=== PATIENT | male | born 1965 | race Caucasian/White ===

== ENCOUNTER 2016-10-17 12:00 | Observation (INO) | payer BC ==
[2016-10-10 15:18] VITALS: BP 121/71
[~2016-10-17] VITALS: Ht 177.8 cm; Wt 82.7 kg
[~2016-10-17 12:00] MED LIST: BACITRACIN 50,000 UNIT ONE; BUPIVACAINE/PF-EPI 0.5% 1:200K ONE; GABA300C10 PO; HYDR-3144 PO; PANT40TA3 PO; THROMBIN 5,000 UNIT VIAL TP ONE
[2016-10-17] MEDS ORDERED: LACTATED RINGERS 1,000 ML IV SCH (12:32)
[2016-10-17] MEDS ORDERED: TRAM50TA2 PO (12:37)
[2016-10-17] MEDS ORDERED: PRAS1TAB3 PO (12:37)
[2016-10-17] MEDS ORDERED: MULT-6 PO (12:37)
[2016-10-17] MEDS ORDERED: LIDOCAINE 1%, 2ML SQ PRN (13:00)
[2016-10-17] MEDS ORDERED: KETAMINE 10 MG/ML, 20ML ONE (16:17)
[2016-10-17] MEDS ORDERED: FENTANYL PF 250 MCG/5ML ONE (16:17)
[2016-10-17] MEDS ORDERED: ROCURONIUM 10 MG/ML ONE (16:20)
[2016-10-17] MEDS ORDERED: METOCLOPRAMIDE 5 MG/ML, 2ML ONE (16:20)
[2016-10-17] MEDS ORDERED: SUCCINYLCHOLINE 20 MG/ML, 10ML ONE (16:20)
[2016-10-17] MEDS ORDERED: ONDANSETRON 2MG/ML, 2ML ONE (16:20)
[2016-10-17] MEDS ORDERED: PROPOFOL 10 MG/ML, 20ML ONE (16:20)
[2016-10-17] MEDS ORDERED: PROPOFOL 10 MG/ML, 50ML ONE (16:20)
[2016-10-17] MEDS ORDERED: DEXAMETHASONE 4 MG/ML, 1ML ONE (16:20)
[2016-10-17] MEDS ORDERED: CEFAZOLIN 1,000 MG ONE (16:20)
[2016-10-17] MEDS ORDERED: BUPIVACAINE/PF-EPI 0.5% 1:200K ONE (16:59)
[2016-10-17] MEDS ORDERED: OXYcodone 5 MG/5 ML ORAL.SOL UDC PO PRN (17:30)
[2016-10-17] MEDS ORDERED: hydrALAzine 20 MG/ML, 1ML IV PRN (17:30)
[2016-10-17] MEDS ORDERED: FENTANYL PF 100 MCG/2ML IV PRN (17:30)
[2016-10-17] MEDS ORDERED: ONDANSETRON 2MG/ML, 2ML IVPush PRN ×2 (17:30→18:30)
[2016-10-17] MEDS ORDERED: MEPERIDINE/PF 25MG/0.5ML IVPush PRN (17:30)
[2016-10-17] MEDS ORDERED: MIDAZOLAM 1 MG/ML, 2ML IV PRN (17:30)
[2016-10-17] MEDS ORDERED: PROMETHAZINE 25 MG/ML, 1ML IV PRN (17:30)
[2016-10-17] MEDS ORDERED: LABETALOL 5MG/ML, 20ML IV PRN (17:30)
[2016-10-17] MEDS ORDERED: PHARMACY MAY ADJ FOR RENAL FX MC PRN (18:30)
[2016-10-17] MEDS ORDERED: HYDROmorphone PCA 30 MG/30 ML IV PRN (18:30)
[2016-10-17] MEDS ORDERED: MAGNESIUM HYDROXIDE 8%, 30ML UDC PO PRN (18:30)
[2016-10-17] MEDS ORDERED: PROMETHAZINE 25 MG/ML, 1ML IM PRN (18:30)
[2016-10-17] MEDS ORDERED: morphine SULFATE 10 MG/ML, 1ML IVPush PRN (18:30)
[2016-10-17] MEDS ORDERED: BISACODYL 10 MG SUPP PR PRN (18:30)
[2016-10-17] MEDS ORDERED: HYDROmorphone 2 MG/ML, 1ML ONE (18:37)
[2016-10-17] MEDS ORDERED: OXYcodone 5 MG/5 ML ORAL.SOL UDC ONE (18:37)
[2016-10-17] MEDS: HYDROmorphone 1 MG/ML, 1ML IV PRN ×2 (18:45→19:07)
[2016-10-17] MEDS ORDERED: HYDROmorphone PCA 30 MG/30 ML ONE (19:09)
[2016-10-17] MEDS: CYCLOBENZAPRINE 10 MG TABLET PO PRN (22:41)
[2016-10-17] MEDS: GABAPENTIN 300 MG CAPSULE PO SCH (22:41)
[2016-10-17] MEDS: SODIUM CHLORIDE FLUSH 10ML SYR IVF SCH (22:41)
[2016-10-17] MEDS: CEFAZOLIN PMX 1GM/50ML 50 ML IVPB SCH (22:54)
[2016-10-17] MEDS: NS + 20MEQ KCL 1,000 ML IV SCH (22:55)
[2016-10-18 00:35] VITALS: BP 134/84
[2016-10-18 03:17] VITALS: BP 148/88
[2016-10-18] MEDS: CYCLOBENZAPRINE 10 MG TABLET PO PRN (06:22)
[2016-10-18] MEDS: GABAPENTIN 300 MG CAPSULE PO SCH ×2 (06:22→12:08)
[2016-10-18] MEDS: HYDROcodone/APAP 10/325 MG TABLET PO PRN ×2 (06:23→10:49)
[2016-10-18] MEDS: CEFAZOLIN PMX 1GM/50ML 50 ML IVPB SCH (06:23)
[2016-10-18 07:35] VITALS: BP 112/70
[2016-10-18] MEDS: NS + 20MEQ KCL 1,000 ML IV SCH (08:13)
[2016-10-18] MEDS: SODIUM CHLORIDE FLUSH 10ML SYR IVF SCH (09:00)
[2016-10-18] MEDS ORDERED: SENNA/DOCUSATE TABLET PO SCH (09:00)
[2016-10-18] MEDS ORDERED: PANTOPROZOLE 40MG TABLET PO SCH (09:00)
[2016-10-18] MEDS ORDERED: CYCL-259 PO (13:15)
[2016-10-18] MEDS ORDERED: POLY119P4 PO (13:18)
== END 2016-10-18 13:30 | disposition home or self-care (01) ==
LOC: OUT 12:00 → ORIP 18:25 → 4NOR 20:00 → DCLOUNGE 10-18 12:50
PROVIDERS: ADMIT Neurological Surgery; ATTEND Neurological Surgery
DX: M48.02 Spinal stenosis, cervical region (principal); M50.223 Other cervical disc displacement at C6-C7 level; M54.12 Radiculopathy, cervical region
CPT/HCPCS: 63045; 72040; 96365; 96375; G0378; J0330; J0690; J1100; J1170; J2405; J2704; J2765; J3010; J3480; J3490; J7120

== ENCOUNTER → 2018-08-30 | Outpatient (CLI) | payer BC ==
[~2018-08-30] MED LIST changes: -BACITRACIN 50,000 UNIT ONE; -BUPIVACAINE/PF-EPI 0.5% 1:200K ONE; +CYCL-259 PO; -HYDR-3144 PO; +HYDR-3245 PO; +MULT-6 PO; +POLY119P4 PO; +PRAS1TAB3 PO; -THROMBIN 5,000 UNIT VIAL TP ONE; +TRAM50TA2 PO
[2018-08-30 13:30] LABS: BASOPHILS # (AUTO) 0.02 x10^3/uL (0-0.1); BASOPHILS % (AUTO) 1 % (0-1); EOSINOPHILS # (AUTO) 0.05 x10^3/uL (0-0.4); EOSINOPHILS % (AUTO) 1 % (1-7); LYMPHOCYTES # (AUTO) 1.65 x10^3/uL (1-3.4); LYMPHOCYTES % (AUTO) 31 % (22-44); MD NO; MEAN CORPUSCULAR HEMOGLOBIN 31.5 pg (27.5-34.5); MEAN CORPUSCULAR HGB CONC 33.8 g/dL (33.2-36.2); MEAN CORPUSCULAR VOLUME 93.2 fL (81-97); MEAN PLATELET VOLUME 7.9 fL (7.4-10.4); MONOCYTES % (AUTO) 6 % (2-9); NEUTROPHILS # (AUTO) 3.38 x10^3/uL (1.8-6.8); NEUTROPHILS % (AUTO) 63 % (42-75); PLATELET COUNT 279 x10^3/uL (130-400); RED BLOOD COUNT 4.96 x10^6/uL (4.38-5.82); RED CELL DISTRIBUTION WIDTH 13.6 % (9.4-14.8)
[2018-08-30 13:30] LABS: MICROSCOPIC NOT IND
[2018-08-30 13:31] LABS: CULTURE INDICATED? NO
[2018-08-30 13:38] LABS: ANION GAP 4 mmol/L (5-15); CALCIUM 9.5 mg/dL (8.5-10.1); CHLORIDE 106 mmol/L (98-107); CREATININE 1.09 mg/dL (0.7-1.3)
[2018-08-30 13:40] LABS: INTERNATIONAL NORMALIZED RATIO 0.98 (0.93-1.1); PROTHROMBIN TIME 10.4 Seconds (9.6-11.5)
== END | disposition home or self-care (01) ==
LOC: STAR 12:41
PROVIDERS: ATTEND Neurological Surgery
DX: Z01.818 Encounter for other preprocedural examination (principal); M51.36 Other intervertebral disc degeneration, lumbar region; M41.85 Other forms of scoliosis, thoracolumbar region; M48.061 Spinal stenosis, lumbar region without neurogenic claudication
CPT/HCPCS: 36415; 71046; 72110; 80048; 81003; 85025; 85610; 85730; 93005

== ENCOUNTER 2018-09-17 09:38 | Observation (INO) | payer BC ==
[~2018-09-17] VITALS: Ht 175.3 cm; Wt 78.4 kg
[~2018-09-17 09:38] MED LIST changes: +BACITRACIN 50,000 UNIT ONE; +BUPIVACAINE/PF-EPI 0.5% 1:200K ONE; +THROMBIN 5,000 UNIT VIAL TP ONE
[2018-09-17] MEDS ORDERED: MIDAZOLAM 1 MG/ML, 2ML ONE (10:00)
[2018-09-17] MEDS ORDERED: FENTANYL PF 250 MCG/5ML ONE (10:01)
[2018-09-17 10:04] VITALS: BP 135/86
[2018-09-17] MEDS ORDERED: LACTATED RINGERS 1,000 ML IV SCH (10:09)
[2018-09-17] MEDS ORDERED: ACETAMINOPHEN 500 MG TABLET ONE (10:14)
[2018-09-17] MEDS ORDERED: GABAPENTIN 300 MG CAPSULE ONE (10:15)
[2018-09-17] MEDS ORDERED: EPINEPHRINE 1 MG/ML, 1ML ONE (10:26)
[2018-09-17] MEDS ORDERED: BUPIVACAINE/PF 0.25% ONE (10:26)
[2018-09-17] MEDS ORDERED: ACETAMINOPHEN 500 MG TABLET PO ONE (10:30)
[2018-09-17] MEDS ORDERED: GABAPENTIN 300 MG CAPSULE PO ONE (10:30)
[2018-09-17] MEDS ORDERED: METHYLENE BLUE 10 MG/ML 10ML ONE (10:48)
[2018-09-17] MEDS ORDERED: SUCCINYLCHOLINE 20 MG/ML, 10ML ONE (10:58)
[2018-09-17] MEDS ORDERED: PROPOFOL 10 MG/ML, 20ML ONE (10:58)
[2018-09-17] MEDS ORDERED: CEFAZOLIN 1,000 MG ONE (10:58)
[2018-09-17] MEDS ORDERED: DEXAMETHASONE 4 MG/ML, 1ML ONE (10:58)
[2018-09-17] MEDS ORDERED: ONDANSETRON 2MG/ML, 2ML ONE (10:58)
[2018-09-17] MEDS ORDERED: methylPREDNISolone SOD SUCC 125 MG/2 ML ONE (11:54)
[2018-09-17] MEDS ORDERED: FENTANYL PF 100 MCG/2ML ONE ×2 (11:55→12:36)
[2018-09-17] MEDS ORDERED: ALBUTEROL SULFATE 2.5 MG/3 ML NPPB PRN (12:30)
[2018-09-17] MEDS ORDERED: HALOPERIDOL 5 MG/ML IV PRN (12:30)
[2018-09-17] MEDS ORDERED: LABETALOL 5MG/ML, 20ML IV PRN (12:30)
[2018-09-17] MEDS ORDERED: PROMETHAZINE 25 MG/ML, 1ML IV PRN (12:30)
[2018-09-17] MEDS ORDERED: hydrALAzine 20 MG/ML, 1ML IV PRN (12:30)
[2018-09-17] MEDS ORDERED: OXYcodone 5 MG/5 ML ORAL.SOL UDC ONE ×2 (12:36→12:51)
[2018-09-17] MEDS: OXYcodone 5 MG/5 ML ORAL.SOL UDC PO PRN ×2 (12:38→12:51)
[2018-09-17] MEDS: FENTANYL PF 100 MCG/2ML IV PRN ×2 (12:48→12:57)
[2018-09-17] MEDS ORDERED: HYDROmorphone 1 MG/ML, 1ML ONE ×2 (12:58→13:15)
[2018-09-17] MEDS: HYDROmorphone 2 MG/ML, 1ML IVPush PRN ×4 (13:00→13:25)
[2018-09-17] MEDS ORDERED: ONDANSETRON ODT 4 MG PO PRN (14:30)
[2018-09-17] MEDS: NS + 20MEQ KCL 1,000 ML IV SCH (14:30)
[2018-09-17] MEDS ORDERED: BISACODYL 10 MG SUPP PR PRN (14:30)
[2018-09-17] MEDS ORDERED: MAGNESIUM HYDROXIDE 8%, 30ML UDC PO PRN (14:30)
[2018-09-17] MEDS ORDERED: PHARMACY MAY ADJ FOR RENAL FX MC PRN (14:30)
[2018-09-17] MEDS ORDERED: TIZANIDINE 4MG TABLET PO PRN (14:30)
[2018-09-17] MEDS ORDERED: morphine SULFATE 10 MG/ML, 1ML IVPush PRN (14:30)
[2018-09-17] MEDS ORDERED: DIPHENHYDRAMINE 25 MG CAPSULE PO PRN (14:30)
[2018-09-17] MEDS ORDERED: SENNA/DOCUSATE TABLET PO PRN (14:30)
[2018-09-17] MEDS ORDERED: HYDROcodone/APAP 10/325 MG TABLET PO PRN (14:30)
[2018-09-17] MEDS ORDERED: ACETAMINOPHEN 500 MG TABLET PO PRN (14:30)
[2018-09-17] MEDS: POTASSIUM CHLORIDE 20 MEQ in SODIUM CHLORIDE 0.9% 1,000 ML IV SCH ×2 (14:30→15:45)
[2018-09-17] MEDS: OXYcodone/APAP 10/325MG TABLET PO PRN ×2 (17:12→21:15)
[2018-09-17 18:44] VITALS: BP 135/71
[2018-09-18 00:10] VITALS: BP 109/65
[2018-09-18] MEDS: NS + 20MEQ KCL 1,000 ML IV SCH (00:30)
[2018-09-18] MEDS: POTASSIUM CHLORIDE 20 MEQ in SODIUM CHLORIDE 0.9% 1,000 ML IV SCH (00:36)
[2018-09-18] MEDS: OXYcodone/APAP 10/325MG TABLET PO PRN ×3 (01:17→10:08)
[2018-09-18 04:22] VITALS: BP 105/57
[2018-09-18] MEDS ORDERED: PANTOPROZOLE 40MG TABLET PO SCH (06:00)
[2018-09-18 08:42] VITALS: BP 103/65
[2018-09-18] MEDS ORDERED: OXYC-307 PO (09:43)
[2018-09-18] MEDS ORDERED: TIZA4TAB9 PO (09:44)
[2018-09-18] MEDS ORDERED: POLY17PO5 PO (09:48)
== END 2018-09-18 10:25 | disposition home or self-care (01) ==
LOC: OUT 09:38 → 4NOR 14:25 → DCLOUNGE 09-18 10:11
PROVIDERS: ADMIT Neurological Surgery; ATTEND Neurological Surgery
DX: M48.061 Spinal stenosis, lumbar region without neurogenic claudication (principal); M54.16 Radiculopathy, lumbar region; M51.36 Other intervertebral disc degeneration, lumbar region
CPT/HCPCS: 63047; 63048; 72100; G0378; J0171; J0330; J0690; J1100; J1170; J2250; J2405; J2704; J2930; J3010; J3480; J3490; J7030; J7120; Q9968

== ENCOUNTER → 2020-02-16 | Outpatient (CLI) | payer BC ==
[~2020-02-16] MED LIST changes: -BACITRACIN 50,000 UNIT ONE; -BUPIVACAINE/PF-EPI 0.5% 1:200K ONE; +OXYC-307 PO; +POLY17PO5 PO; -THROMBIN 5,000 UNIT VIAL TP ONE; +TIZA4TAB9 PO
[2020-02-16 10:11] LABS: BASOPHILS # (AUTO) 0.03 x10^3/uL (0-0.1); BASOPHILS % (AUTO) 1 % (0-1); EOSINOPHILS # (AUTO) 0.09 x10^3/uL (0-0.4); EOSINOPHILS % (AUTO) 2 % (1-7); LYMPHOCYTES % (AUTO) 28 % (22-44); MD NO; MEAN CORPUSCULAR HEMOGLOBIN 30.7 pg (27.5-34.5); MEAN CORPUSCULAR VOLUME 92.9 fL (81-97); MONOCYTES # (AUTO) 0.29 x10^3/uL (0.2-0.8); MONOCYTES % (AUTO) 6 % (2-9); NEUTROPHILS # (AUTO) 3.18 x10^3/uL (1.8-6.8); NEUTROPHILS % (AUTO) 64 % (42-75); PLATELET COUNT 268 x10^3/uL (130-400); RED BLOOD COUNT 5.18 x10^6/uL (4.38-5.82)
[2020-02-16 10:19] LABS: MICROSCOPIC NOT IND
[2020-02-16 10:19] LABS: INTERNATIONAL NORMALIZED RATIO 0.93 (0.93-1.1); PROTHROMBIN TIME 9.9 Seconds (9.6-11.5)
[2020-02-16 10:22] LABS: ALBUMIN 4.3 g/dL (3.4-5.0); ANION GAP 3 mmol/L (5-15); CALCIUM 9.8 mg/dL (8.5-10.1); CHLORIDE 107 mmol/L (98-107)
[2020-02-16 10:26] LABS: ALANINE AMINOTRANSFERASE 25 U/L (12-78); ALKALINE PHOSPHATASE 67 U/L (45-117); BILIRUBIN,TOTAL 0.7 mg/dL (0.2-1.0); CREATININE 1.11 mg/dL (0.7-1.3)
== END | disposition home or self-care (01) ==
LOC: STAR 08:58
PROVIDERS: ATTEND Neurological Surgery
DX: Z01.818 Encounter for other preprocedural examination (principal); M41.86 Other forms of scoliosis, lumbar region; M43.16 Spondylolisthesis, lumbar region
CPT/HCPCS: 36415; 71046; 80053; 81003; 85025; 85610; 85730; 93005

== ENCOUNTER 2020-02-24 13:46 | Outpatient (CLI) | payer BC | END 2020-02-24 23:59 | disposition home or self-care (01) | LOC: CFH 13:46 | PROVIDERS: ATTEND Neurological Surgery | DX: M51.36 Other intervertebral disc degeneration, lumbar region (principal); M48.07 Spinal stenosis, lumbosacral region | CPT/HCPCS: 72131 ==

== ENCOUNTER 2020-03-01 05:48 | Inpatient (IN) | payer BC ==
[~2020-03-01] VITALS: Ht 177.8 cm; Wt 84.5 kg
[2020-03-01] MEDS ORDERED: LACTATED RINGERS 1,000 ML IV SCH (06:05)
[2020-03-01] MEDS ORDERED: CHLORHEXIDINE 15 ML UDC MM STA (06:05)
[2020-03-01] MEDS ORDERED: BUPIVACAINE/PF 0.5% ONE (06:32)
[2020-03-01] MEDS ORDERED: BACITRACIN 50,000 UNIT ONE (06:33)
[2020-03-01] MEDS ORDERED: THROMBIN 5,000 UNIT VIAL TP ONE (06:33)
[2020-03-01] MEDS ORDERED: EPINEPHRINE 1 MG/ML, 1ML ONE (06:33)
[2020-03-01] MEDS ORDERED: FENTANYL PF 250 MCG/5ML ONE (06:44)
[2020-03-01] MEDS ORDERED: MIDAZOLAM 1 MG/ML, 2ML ONE (06:44)
[2020-03-01] MEDS ORDERED: FAMOTIDINE 20 MG TABLET ONE (06:52)
[2020-03-01] MEDS ORDERED: ROCURONIUM 10MG/ML,5ML ONE (06:54)
[2020-03-01] MEDS ORDERED: PROPOFOL 10 MG/ML, 20ML ONE (06:54)
[2020-03-01] MEDS ORDERED: DEXAMETHASONE 4 MG/ML, 1ML ONE ×2 (06:54→06:55)
[2020-03-01] MEDS ORDERED: CEFAZOLIN 1,000 MG ONE ×2 (06:55)
[2020-03-01] MEDS ORDERED: FAMOTIDINE 40 MG TABLET PO ONE (07:00)
[2020-03-01] MEDS ORDERED: ACETAMINOPHEN 500 MG TABLET PO ONE (07:00)
[2020-03-01] MEDS ORDERED: GABAPENTIN 300 MG CAPSULE PO ONE (07:00)
[2020-03-01] MEDS: SCOPOLAMINE 1MG PATCH TD SCH (07:00)
[2020-03-01] MEDS ORDERED: SUCCINYLCHOLINE 20 MG/ML, 10ML ONE (07:01)
[2020-03-01] MEDS ORDERED: KETOROLAC 30 MG/1 ML ONE (07:01)
[2020-03-01] MEDS ORDERED: ONDANSETRON 2MG/ML, 2ML ONE ×2 (08:29→08:30)
[2020-03-01] MEDS ORDERED: SUGAMMADEX 200 MG/2 ML IVPush ONE (08:29)
[2020-03-01] MEDS ORDERED: HYDROmorphone 1 MG/ML, 1ML INJ IVPush PRN (08:30)
[2020-03-01] MEDS ORDERED: MEPERIDINE/PF 100 MG/ML IM PRN (08:30)
[2020-03-01] MEDS ORDERED: BISACODYL 10 MG SUPP PR PRN (08:30)
[2020-03-01] MEDS ORDERED: ONDANSETRON 2MG/ML, 2ML IVPush PRN ×2 (08:30→09:00)
[2020-03-01] MEDS ORDERED: PROMETHAZINE 25 MG/ML, 1ML IM PRN (08:30)
[2020-03-01] MEDS ORDERED: HYDROmorphone PCA 30 MG/30 ML IV PRN (08:30)
[2020-03-01] MEDS ORDERED: DIPHENHYDRAMINE 50 MG/ML, 1ML IVPush PRN ×2 (08:30→09:00)
[2020-03-01] MEDS ORDERED: PHARMACY MAY ADJ FOR RENAL FX MC PRN (08:30)
[2020-03-01] MEDS ORDERED: CALCIUM CARBONATE 500 MG TAB.CHEW PO PRN (08:30)
[2020-03-01] MEDS ORDERED: LABETALOL 5MG/ML, 20ML IV PRN (09:00)
[2020-03-01] MEDS ORDERED: EPHEDRINE 50 MG/ML, 1ML IVPush PRN (09:00)
[2020-03-01] MEDS ORDERED: MEPERIDINE/PF 25MG/0.5ML IVPush PRN (09:00)
[2020-03-01] MEDS ORDERED: PROMETHAZINE 12.5 MG SUPP PR PRN (09:00)
[2020-03-01] MEDS ORDERED: hydrALAzine 20 MG/ML, 1ML IV PRN (09:00)
[2020-03-01] MEDS ORDERED: PROMETHAZINE 25 MG/ML, 1ML IVPush PRN (09:00)
[2020-03-01] MEDS ORDERED: DIAZEPAM 5 MG/ML, 2ML IVPush PRN (09:00)
[2020-03-01] MEDS ORDERED: MIDAZOLAM 1 MG/ML, 2ML IV PRN (09:00)
[2020-03-01] MEDS ORDERED: OXYcodone 5 MG/5 ML ORAL.SOL UDC PO PRN (09:00)
[2020-03-01] MEDS ORDERED: ALBUTEROL SULFATE 2.5 MG/3 ML NPPB PRN (09:00)
[2020-03-01] MEDS ORDERED: MEPERIDINE/PF 25MG/ML,1ML ONE (09:04)
[2020-03-01] MEDS ORDERED: HYDROmorphone 2 MG/ML, 1ML ONE (09:12)
[2020-03-01] MEDS ORDERED: FENTANYL PF 100 MCG/2ML ONE (09:12)
[2020-03-01] MEDS: FENTANYL PF 100 MCG/2ML IV PRN ×2 (09:16→09:24)
[2020-03-01] MEDS: HYDROmorphone 1 MG/ML, 1ML INJ IVPush PRN ×3 (09:29→09:49)
[2020-03-01] MEDS ORDERED: METHOCARBAMOL 1,000 MG in DEXTROSE 5% 100 ML IV ONE (09:30)
[2020-03-01] MEDS: PANTOPRAZOLE 40MG TABLET PO SCH (12:43)
[2020-03-01] MEDS: SODIUM CHLORIDE FLUSH 10ML SYR IVF SCH ×2 (12:43→20:19)
[2020-03-01] MEDS: SENNA/DOCUSATE TABLET PO SCH (12:43)
[2020-03-01 12:45] VITALS: BP 126/72
[2020-03-01] MEDS: NS + 20MEQ KCL 1,000 ML IV SCH (14:52)
[2020-03-01] MEDS: CEFAZOLIN PMX 1GM/50ML 50 ML IVPB SCH (18:11)
[2020-03-01 20:10] VITALS: BP 113/71
[2020-03-01 23:38] VITALS: BP 100/63
[2020-03-02] MEDS: NS + 20MEQ KCL 1,000 ML IV SCH ×2 (01:01→16:46)
[2020-03-02] MEDS: CEFAZOLIN PMX 1GM/50ML 50 ML IVPB SCH ×2 (02:11→16:47)
[2020-03-02] MEDS: PANTOPRAZOLE 40MG TABLET PO SCH (03:28)
[2020-03-02 04:24] VITALS: BP 111/67
[2020-03-02 05:19] LABS: BASOPHILS # (AUTO) 0.04 x10^3/uL (0-0.1); BASOPHILS % (AUTO) 0 % (0-1); EOSINOPHILS # (AUTO) 0.07 x10^3/uL (0-0.4); EOSINOPHILS % (AUTO) 1 % (1-7); LYMPHOCYTES # (AUTO) 1.16 x10^3/uL (1-3.4); LYMPHOCYTES % (AUTO) 13 % (22-44); MD NO; MEAN CORPUSCULAR HEMOGLOBIN 30.5 pg (27.5-34.5); MEAN CORPUSCULAR HGB CONC 32.6 g/dL (33.2-36.2); MEAN PLATELET VOLUME 8.6 fL (7.4-10.4); MONOCYTES # (AUTO) 0.74 x10^3/uL (0.2-0.8); MONOCYTES % (AUTO) 8 % (2-9); NEUTROPHILS % (AUTO) 78 % (42-75); PLATELET COUNT 218 x10^3/uL (130-400); RED BLOOD COUNT 4.45 x10^6/uL (4.38-5.82); RED CELL DISTRIBUTION WIDTH 13.6 % (9.4-14.8)
[2020-03-02 05:25] LABS: ANION GAP 3 mmol/L (5-15); CALCIUM 8.5 mg/dL (8.5-10.1); CHLORIDE 106 mmol/L (98-107)
[2020-03-02 05:27] LABS: CREATININE 0.87 mg/dL (0.7-1.3)
[2020-03-02] MEDS ORDERED: VANCOMYCIN 1,000 MG ONE (06:15)
[2020-03-02] MEDS ORDERED: BUPIVACAINE/PF-EPI 0.25% 1:200K ONE (06:15)
[2020-03-02] MEDS ORDERED: BACITRACIN 50,000 UNIT ONE (06:15)
[2020-03-02] MEDS ORDERED: CHLORHEXIDINE 15 ML UDC MM ONE (06:30)
[2020-03-02] MEDS ORDERED: ACETAMINOPHEN 500 MG TABLET ONE (06:46)
[2020-03-02] MEDS ORDERED: GABAPENTIN 300 MG CAPSULE ONE (06:47)
[2020-03-02] MEDS ORDERED: MIDAZOLAM 1 MG/ML, 2ML ONE (06:49)
[2020-03-02] MEDS ORDERED: FENTANYL PF 250 MCG/5ML ONE (06:49)
[2020-03-02] MEDS ORDERED: PROPOFOL 100 ML ONE (06:55)
[2020-03-02] MEDS ORDERED: HEPARIN 1,000 UNITS/ML, 30ML ONE (07:03)
[2020-03-02] MEDS ORDERED: PROMETHAZINE 25 MG/ML, 1ML IV PRN (08:00)
[2020-03-02] MEDS ORDERED: OXYcodone 5 MG/5 ML ORAL.SOL UDC PO PRN (08:00)
[2020-03-02] MEDS ORDERED: ACETAMINOPHEN 325 MG TABLET PO PRN (08:00)
[2020-03-02] MEDS ORDERED: hydrALAzine 20 MG/ML, 1ML IV PRN (08:00)
[2020-03-02] MEDS ORDERED: LABETALOL 5MG/ML, 20ML IV PRN (08:00)
[2020-03-02] MEDS ORDERED: KETOROLAC 30 MG/1 ML IV PRN (08:00)
[2020-03-02] MEDS ORDERED: MEPERIDINE/PF 25MG/0.5ML IVPush PRN (08:00)
[2020-03-02] MEDS ORDERED: FENTANYL PF 100 MCG/2ML IV PRN (08:00)
[2020-03-02] MEDS ORDERED: ALBUTEROL SULFATE 2.5 MG/3 ML NPPB PRN (08:00)
[2020-03-02] MEDS ORDERED: DIAZEPAM 5 MG/ML, 2ML IVPush PRN (08:00)
[2020-03-02] MEDS: SODIUM CHLORIDE FLUSH 10ML SYR IVF SCH ×2 (09:00→20:46)
[2020-03-02] MEDS: HYDROmorphone 2 MG/ML, 1ML IVPush PRN ×4 (11:51→12:13)
[2020-03-02] MEDS ORDERED: HYDROmorphone 2 MG/ML, 1ML ONE (11:51)
[2020-03-02] MEDS ORDERED: METHOCARBAMOL 1,000 MG in DEXTROSE 5% 100 ML IV ONE (12:00)
[2020-03-02] MEDS ORDERED: PHARMACY MAY ADJ FOR RENAL FX MC PRN (12:00)
[2020-03-02] MEDS ORDERED: CEFAZOLIN PMX 1GM/50ML 50 ML IVPB SCH (12:00)
[2020-03-02] MEDS ORDERED: OXYcodone 5 MG/5 ML ORAL.SOL UDC ONE (12:26)
[2020-03-02] MEDS: SENNA/DOCUSATE TABLET PO SCH (13:20)
[2020-03-02 13:35] VITALS: BP 91/43
[2020-03-02 18:58] VITALS: BP 106/62
[2020-03-02 23:27] VITALS: BP 102/62
[2020-03-03] MEDS: CEFAZOLIN PMX 1GM/50ML 50 ML IVPB SCH (00:26)
[2020-03-03 03:53] VITALS: BP 113/62
[2020-03-03] MEDS: NS + 20MEQ KCL 1,000 ML IV SCH ×3 (04:31→22:00)
[2020-03-03] MEDS: ACETAMINOPHEN 500 MG TABLET PO PRN (05:29)
[2020-03-03 05:38] LABS: BASOPHILS # (AUTO) 0.03 x10^3/uL (0-0.1); BASOPHILS % (AUTO) 0 % (0-1); EOSINOPHILS # (AUTO) 0.08 x10^3/uL (0-0.4); EOSINOPHILS % (AUTO) 1 % (1-7); LYMPHOCYTES # (AUTO) 0.97 x10^3/uL (1-3.4); LYMPHOCYTES % (AUTO) 13 % (22-44); MD NO; MEAN CORPUSCULAR HEMOGLOBIN 31.2 pg (27.5-34.5); MEAN CORPUSCULAR HGB CONC 33.2 g/dL (33.2-36.2); MEAN PLATELET VOLUME 8.6 fL (7.4-10.4); MONOCYTES # (AUTO) 0.56 x10^3/uL (0.2-0.8); MONOCYTES % (AUTO) 8 % (2-9); NEUTROPHILS # (AUTO) 5.67 x10^3/uL (1.8-6.8); NEUTROPHILS % (AUTO) 78 % (42-75); PLATELET COUNT 192 x10^3/uL (130-400); RED BLOOD COUNT 3.61 x10^6/uL (4.38-5.82); RED CELL DISTRIBUTION WIDTH 13.6 % (9.4-14.8)
[2020-03-03 05:43] LABS: ANION GAP 6 mmol/L (5-15); CALCIUM 7.8 mg/dL (8.5-10.1); CHLORIDE 108 mmol/L (98-107); CREATININE 0.87 mg/dL (0.7-1.3)
[2020-03-03] MEDS: PANTOPRAZOLE 40MG TABLET PO SCH (06:04)
[2020-03-03 06:54] VITALS: BP 104/61
[2020-03-03] MEDS: MAGNESIUM HYDROXIDE 8%, 30ML UDC PO PRN (08:34)
[2020-03-03] MEDS: SENNA/DOCUSATE TABLET PO SCH (08:34)
[2020-03-03] MEDS: OXYcodone/APAP 10/325MG TABLET PO PRN ×3 (08:35→16:40)
[2020-03-03] MEDS: METHOCARBAMOL 750 MG TABLET PO PRN ×2 (08:35→16:40)
[2020-03-03] MEDS: SODIUM CHLORIDE FLUSH 10ML SYR IVF SCH ×2 (08:36→21:00)
[2020-03-03] MEDS ORDERED: CEFAZOLIN PMX 1GM/50ML 50 ML IV SCH (11:00)
[2020-03-03 12:27] VITALS: BP 99/59
[2020-03-03] MEDS: DIAZEPAM 5 MG TABLET PO PRN (12:29)
[2020-03-03 14:20] VITALS: BP 118/64
[2020-03-03 18:05] LABS: MICROSCOPIC AUTO
[2020-03-03 18:17] VITALS: BP 119/73
[2020-03-04 00:05] VITALS: BP 116/65
[2020-03-04] MEDS: OXYcodone/APAP 10/325MG TABLET PO PRN (02:41)
[2020-03-04 05:59] LABS: BASOPHILS # (AUTO) 0.06 x10^3/uL (0-0.1); BASOPHILS % (AUTO) 1 % (0-1); EOSINOPHILS # (AUTO) 0.25 x10^3/uL (0-0.4); EOSINOPHILS % (AUTO) 3 % (1-7); LYMPHOCYTES # (AUTO) 1.13 x10^3/uL (1-3.4); LYMPHOCYTES % (AUTO) 11 % (22-44); MD NO; MEAN CORPUSCULAR HEMOGLOBIN 30.9 pg (27.5-34.5); MEAN CORPUSCULAR HGB CONC 33.1 g/dL (33.2-36.2); MEAN PLATELET VOLUME 8.5 fL (7.4-10.4); MONOCYTES # (AUTO) 0.76 x10^3/uL (0.2-0.8); MONOCYTES % (AUTO) 7 % (2-9); NEUTROPHILS % (AUTO) 79 % (42-75); PLATELET COUNT 202 x10^3/uL (130-400); RED BLOOD COUNT 3.82 x10^6/uL (4.38-5.82); RED CELL DISTRIBUTION WIDTH 13.6 % (9.4-14.8)
[2020-03-04 06:05] LABS: ANION GAP 6 mmol/L (5-15); CALCIUM 8.5 mg/dL (8.5-10.1); CHLORIDE 106 mmol/L (98-107); CREATININE 0.85 mg/dL (0.7-1.3)
[2020-03-04] MEDS: SCOPOLAMINE 1MG PATCH TD SCH (06:12)
[2020-03-04] MEDS: PANTOPRAZOLE 40MG TABLET PO SCH (06:22)
[2020-03-04] MEDS: NS + 20MEQ KCL 1,000 ML IV SCH ×3 (07:18→21:32)
[2020-03-04] MEDS: SODIUM CHLORIDE FLUSH 10ML SYR IVF SCH ×2 (08:13→21:00)
[2020-03-04] MEDS: SENNA/DOCUSATE TABLET PO SCH (08:13)
[2020-03-04 08:15] VITALS: BP 121/75
[2020-03-04] MEDS: MAGNESIUM HYDROXIDE 8%, 30ML UDC PO PRN (08:19)
[2020-03-04] MEDS: HYDROmorphone 2MG TABLET PO PRN ×3 (08:19→17:55)
[2020-03-04] MEDS: ACETAMINOPHEN 500 MG TABLET PO PRN (11:58)
[2020-03-04 13:15] VITALS: BP 119/64
[2020-03-04 18:30] VITALS: BP 115/66
[2020-03-05 00:12] VITALS: BP 125/75
[2020-03-05] MEDS: HYDROmorphone 2MG TABLET PO PRN ×3 (01:15→10:50)
[2020-03-05 05:25] LABS: BASOPHILS # (AUTO) 0.04 x10^3/uL (0-0.1); BASOPHILS % (AUTO) 0 % (0-1); EOSINOPHILS % (AUTO) 6 % (1-7); LYMPHOCYTES # (AUTO) 1.14 x10^3/uL (1-3.4); LYMPHOCYTES % (AUTO) 13 % (22-44); MD NO; MEAN CORPUSCULAR HEMOGLOBIN 30.7 pg (27.5-34.5); MEAN CORPUSCULAR HGB CONC 32.8 g/dL (33.2-36.2); MEAN PLATELET VOLUME 8.4 fL (7.4-10.4); MONOCYTES # (AUTO) 0.57 x10^3/uL (0.2-0.8); MONOCYTES % (AUTO) 6 % (2-9); NEUTROPHILS # (AUTO) 6.79 x10^3/uL (1.8-6.8); NEUTROPHILS % (AUTO) 75 % (42-75); PLATELET COUNT 227 x10^3/uL (130-400); RED BLOOD COUNT 3.94 x10^6/uL (4.38-5.82); RED CELL DISTRIBUTION WIDTH 13.1 % (9.4-14.8)
[2020-03-05 05:32] LABS: ANION GAP 4 mmol/L (5-15); CALCIUM 8.9 mg/dL (8.5-10.1); CHLORIDE 105 mmol/L (98-107)
[2020-03-05] MEDS: PANTOPRAZOLE 40MG TABLET PO SCH (06:08)
[2020-03-05 07:31] VITALS: BP 101/66
[2020-03-05] MEDS: SODIUM CHLORIDE FLUSH 10ML SYR IVF SCH (08:28)
[2020-03-05] MEDS: SENNA/DOCUSATE TABLET PO SCH (08:28)
[2020-03-05] MEDS: DIAZEPAM 5 MG TABLET PO PRN (08:32)
[2020-03-05 10:45] VITALS: BP 108/61
[2020-03-05] MEDS ORDERED: HYDR2TAB29 PO (11:14)
[2020-03-05] MEDS ORDERED: TIZA2CAP2 PO (11:19)
[2020-03-05] MEDS ORDERED: POLY17PO5 PO (11:24)
== END 2020-03-05 11:45 | disposition home or self-care (01) | DRG 455 ==
LOC: ORIP 05:48 → 4NE 10:32 → DCLOUNGE 03-05 11:37
PROVIDERS: ADMIT Neurological Surgery; ATTEND Neurological Surgery
PROC: 0SG30A0 Fusion of Lumbosacral Joint with Interbody Fusion Device, Anterior Approach, Anterior Column, Open Approach (ICD-10-PCS; 2020-03-01)
PROC: 01NB0ZZ Release Lumbar Nerve, Open Approach (ICD-10-PCS; 2020-03-01)
PROC: 3E0U0GB Introduction of Recombinant Bone Morphogenetic Protein into Joints, Open Approach (ICD-10-PCS; 2020-03-01)
PROC: 0SG00A0 Fusion of Lumbar Vertebral Joint with Interbody Fusion Device, Anterior Approach, Anterior Column, Open Approach (ICD-10-PCS; principal; 2020-03-01 07:00)
PROC: 0SG0071 Fusion of Lumbar Vertebral Joint with Autologous Tissue Substitute, Posterior Approach, Posterior Column, Open Approach (ICD-10-PCS; 2020-03-03)
PROC: 0SG3071 Fusion of Lumbosacral Joint with Autologous Tissue Substitute, Posterior Approach, Posterior Column, Open Approach (ICD-10-PCS; 2020-03-03)
PROC: 01NB0ZZ Release Lumbar Nerve, Open Approach (ICD-10-PCS; 2020-03-03)
PROC: 01NR0ZZ Release Sacral Nerve, Open Approach (ICD-10-PCS; 2020-03-03)
PROC: 3E0U0GB Introduction of Recombinant Bone Morphogenetic Protein into Joints, Open Approach (ICD-10-PCS; 2020-03-03)
PROC: 4A11X4G Monitoring of Peripheral Nervous Electrical Activity, Intraoperative, External Approach (ICD-10-PCS; 2020-03-03)
PROC: 8E0 Other Procedures, Physiological Systems and Anatomical Regions, Other Procedures (ICD-10-PCS; 2020-03-03)
DX: M47.26 Other spondylosis with radiculopathy, lumbar region (principal); M48.07 Spinal stenosis, lumbosacral region; Z20.828 Contact with and (suspected) exposure to other viral communicable diseases
CPT/HCPCS: 36415; 72100; 74018; S0020; 71045; 80048; 81001; 85025; 86850; 86900; 87635; 95938; 95941; C1713; C1776; G0378; J0171; J0690; J1100; J1170; J1644; J1885; J2175; J2250; J2405; J2704; J3010; J3370; J3480; C1762; J0330; J2800; J7120